=== PATIENT | male | born 2000 | race Two or more races ===

== ENCOUNTER 2022-12-01 02:00 | Emergency (ER) | payer OTHER ==
[~2022-12-01] VITALS: Ht 154.9 cm; Wt 50.8 kg
[2022-12-01] MEDS ORDERED: ORPHENADRINE C100 MG PO (06:01)
[2022-12-01] MEDS ORDERED: KETO10TA2 PO (06:01)
== END 2022-12-01 06:08 ==
LOC: ER 02:00
DX: M54.2 Cervicalgia (principal)

== ENCOUNTER 2023-01-04 00:07 | Emergency (ER) | payer OTHER ==
[~2023-01-04] VITALS: Ht 144.8 cm; Wt 42.2 kg
[~2023-01-04 00:07] MED LIST: KETO10TA2 PO; ORPHENADRINE C100 MG PO
== END 2023-01-04 13:25 | disposition home or self-care (01) ==
LOC: ER 00:07
DX: R11.10 Vomiting, unspecified (principal); R19.7 Diarrhea, unspecified